=== PATIENT | male | born 1950 | race Two or more races ===

== ENCOUNTER 2019-04-11 13:08 | Inpatient (IN) | payer MEDICARE, OTHER ==
[~2019-04-11] VITALS: Ht 167.6 cm; Wt 84.8 kg
[~2019-04-11 13:08] MED LIST: ALBU18HF2 INH; DUTA0.5C PO; IPRA12.9 IN; TAMS0.4C34 PO
[2019-04-11 14:00] LABS: BASOPHILS % (AUTO) 0.2 % (0.0-2.0); EOSINOPHILS % (AUTO) 0.1 % (0.0-6.0); HEMATOCRIT 42 % (39-51); HEMOGLOBIN 14.2 g/dL (13.5-17.5); LYMPHOCYTES # (AUTO) 1.4 /CMM (0.8-4.8); LYMPHOCYTES % (AUTO) 13.1 % (20.0-44.0); MEAN CORPUSCULAR HGB CONC 34 g/dl (31.0-36.0); MEAN CORPUSCULAR VOLUME 96 fL (80-96); MONOCYTES # (AUTO) 1.1 /CMM (0.1-1.30); MONOCYTES % (AUTO) 10.7 % (2.0-12.0); NEUTROPHILS # (AUTO) 7.9 /CMM (1.8-8.9); NEUTROPHILS % (AUTO) 75.9 % (43.0-81.0); PLATELET COUNT (AUTO) 232 /CMM (150-450); WHITE BLOOD COUNT (AUTO) 10.4 K/uL (4.3-11.0)
[2019-04-11 14:07] LABS: CALCIUM, SERUM 9.1 mg/dL (8.5-10.1); CREATININE 0.9 mg/dL (0.6-1.3); POTASSIUM 4.3 mmol/L (3.5-5.1)
[2019-04-11 14:13] LABS: BILIRUBIN,TOTAL 0.5 mg/dL (0.2-1.0)
[2019-04-11 14:14] LABS: BILIRUBIN,DIRECT 0.2 mg/dL (0.0-0.2); TOTAL PROTEIN, SERUM 7.7 g/dL (6.4-8.2)
--- NOTE | 2019-04-11 14:16 | NUR ---
patient awake alert compali of abdominal pain denies nausea and vomiting ,xray done blood draws obtained continue to monitor
[2019-04-11 14:22] LABS: APPEARANCE,URINE Clear (CLEAR); BILIRUBIN,URINE Negative (NEGATIVE); BLOOD, URINE Small Ery/uL (NEGATIVE); COLOR,URINE Dark (YELLOW); KETONES,URINE Negative (NEGATIVE); LEUKOCYTE ESTERASE ,URINE Negative (NEGATIVE); NITRITE, URINE Negative (NEGATIVE); PROTEIN,URINE 30 mg/dl (NEGATIVE); UGLUCOSE Negative (NEGATIVE)
[2019-04-11] MEDS ORDERED: IV NS 0.9% 1,000 ML BAG IV ONE (14:30)
[2019-04-11 14:38] LABS: BACTERIA,URINE None seen /HPF (None Seen); MUCUS,URINE Few /LPF (None Seen); SQUAMOUS EPITHELIAL CELL,UR Rare /HPF (None Seen)
[2019-04-11] MEDS ORDERED: CT SWABBABLE VALVE TRANS SET 1 EA INFUS.SET MC ONE (14:44)
[2019-04-11] MEDS ORDERED: IOHEXOL-300 100 ML VIAL IV ONE (14:44)
[2019-04-11] MEDS ORDERED: IV NS 0.9% 250 ML IV ONE (14:44)
[2019-04-11] MEDS ORDERED: KETOROLAC TROMETHAMINE INJ 30 MG/ML VIAL IV ONE (16:00)
[2019-04-11] MEDS ORDERED: ISOS60TA4 PO (16:13)
[2019-04-11] MEDS ORDERED: DONE5TAB34 PO (16:13)
[2019-04-11] MEDS ORDERED: FLUT1DIS5 INH (16:13)
[2019-04-11] MEDS ORDERED: TAMS-12 PO (16:13)
[2019-04-11] MEDS ORDERED: MECL-102 PO (16:13)
[2019-04-11] MEDS ORDERED: ESCI10TA PO (16:13)
[2019-04-11] MEDS ORDERED: AMYL1CAP58 PO (16:13)
[2019-04-11] MEDS ORDERED: DUTA0.5C15 PO (16:13)
[2019-04-11] MEDS ORDERED: MONT10TA22 PO (16:13)
[2019-04-11] MEDS ORDERED: ICOS1CAP PO (16:13)
[2019-04-11] MEDS ORDERED: ROSU10TA29 PO (16:13)
[2019-04-11] MEDS ORDERED: KETOROLAC TROMETHAMINE INJ 30 MG/ML VIAL ONE (16:31)
--- NOTE | 2019-04-11 16:31 | NUR ---
CALLED FOR BED
--- NOTE | 2019-04-11 16:34 | NUR ---
[facility] PAGED
--- NOTE | 2019-04-11 16:50 | NUR ---
PATIENT AWAKE ALERT ARMENIA SPEAKING Rosalee @ BEDSIDE FOR INTREPRETER FAMILY MADE AWARE PLAN OF CARE ,ULTRASOUND @ BEDSIDE
--- NOTE | 2019-04-11 16:55 | NUR ---
room [facility]
[2019-04-11] MEDS ORDERED: PIPERACILLIN /TAZOBACTAM 3.375 G in IV D5W 50 ML IV ONE (17:00)
--- NOTE | 2019-04-11 17:21 | NUR ---
CALLED REPORT TO Shelia GOMEZ [phone]
[2019-04-11 17:30] VITALS: BP 134/78
[2019-04-11] MEDS ORDERED: ONDANSETRON HCL/PF 4 MG/2 ML VIAL IVP PRN (17:30)
[2019-04-11] MEDS ORDERED: Z GUARD REMEDY 2 OZ OINT TP PRN (17:30)
[2019-04-11] MEDS ORDERED: MAGNESIUM HYDROXIDE 30 ML UDC PO PRN (17:30)
[2019-04-11] MEDS ORDERED: MORPHINE SULFATE INJ 2 MG/ML DISP.SYRIN IV PRN (17:30)
[2019-04-11] MEDS ORDERED: MAG HYDROX/AL HYDROX/SIMETH 30 ML UDC PO PRN (17:30)
[2019-04-11] MEDS ORDERED: ACETAMINOPHEN 325 MG TABLET PO PRN (17:30)
[2019-04-11] MEDS ORDERED: ZOLPIDEM TARTRATE 5 MG TABLET PO PRN (17:30)
--- NOTE | 2019-04-11 17:30 | NUR ---
Received patient awake A/O x4 Namibian speaking only. Patient reported he has no pain at this time.Pain med was given in ER. Patient has IV assess LAC G20 , flushing well. Skin intact , gait is steady. No belongings with the patient. Patient adm. to MS , with diagnosis acute Cholecystitis . NPO status except meds . Patient oriented to the unit and room . Safety precautions implemented, call light within reach. Will endorse to next shift for TOMMY.
--- NOTE | 2019-04-11 17:38 | NUR ---
ELBERT MEJIA TO Jose Armando GOMEZ MADE AWARE STARTED INFUSION OF IV ANTI BIOTIC
[2019-04-11 18:00] VITALS: BP 129/73
[2019-04-11] MEDS ORDERED: Icosapent Ethyl (Vascepa) 1 GM PO SCH (18:00)
[2019-04-11] MEDS ORDERED: PIPERACILLIN /TAZOBACTAM 3.375 G in IV D5W 50 ML IV SCH (18:00)
[2019-04-11] MEDS: LIPASE/PROTEASE/AMYLASE 1 EACH CAPSULE.DR PO SCH (18:28)
[2019-04-11 19:10] VITALS: BP 116/69
--- NOTE | 2019-04-11 19:10 | NUR ---
MS YANNI INITIAL NOTES RECEIVED REPORT FROM AM NURSE WHILE DOING ROUNDS TO PT ROOM AND AT THE SAME TIME DR LUNA FITCH CAME AND WANTS TO SPEAK TO THE PATIENT. STANLEY/RN HELPED TO TRANSLATED BECAUSE PT ONLY SPEAK GUAMANIAN. DENIES ANY PAIN AT THIS TIME ONLY WHEN PRESSING HIS ABDOMEN . NO N/V WELL. GOT ORDERED TO CONTINUE MONITORING AND KEPT PT NPO AT THIS TIME. ENCOURAGE PT TO USED THE CALL LIGHT SYSTEM IF HE NEEDS SOME HELP OR NEEDS ASSISTANCE. KEPT HIM COMFORTABLE AND SAFETY AT ALL TIMES. PLACE CALL LIGHT AT REACH.
[2019-04-11] MEDS ORDERED: IV NS 0.9% 1,000 ML BAG IV PRN (19:30)
[2019-04-11 20:20] VITALS: BP 116/69
[2019-04-11] MEDS: IV NS 0.9% 1,000 ML IV PRN (21:06)
[2019-04-11] MEDS: TAMSULOSIN 0.4 MG CAP.SR.24H PO SCH (21:58)
--- NOTE | 2019-04-11 23:00 | NUR ---
MS LIAO NOTES CALLED CAKE PRESS OPERATOR MD REGARDING PT COMPLAINT. SPOKE TO DR DOMINGUEZ GOT ORDERED ALBUTEROL/ATROVENT UNIT DOSE Q 4HRS AND PRN. Addendum: 04/12/19 at 0006 by BUD SIMON LVN OFFERED TO THE PATIENT THE BREO ELLIPTA FOR HIS ASTHMA ,INHALATION TREATMENT BUT PT REFUSED . HE CALLED HIS DAUGHTER RUDDY HIS CELLPHONE AND DAUGHTER TOLD ME THAT PT DOESN'T LIKE THAT MEDICATION INSTEAD HE WANTS DIFF. WANT.
[2019-04-11] MEDS: IPRATROPIUM NEB FS 0.5 MG/2.5 ML AMPUL.NEB NEB PRN (23:25)
[2019-04-11] MEDS: ALBUTEROL FS 2.5 MG/3 ML VIAL.NEB NEB PRN (23:25)
--- NOTE | 2019-04-11 23:25 | NUR ---
MS YANNI NOTES RESPIRATORY CAME AND ADMINISTERED BREATHING TX ORDERED.
[2019-04-11] MEDS: PIPERACILLIN /TAZOBACTAM 3.375 G in IV D5W 100 ML IV SCH (23:45)
--- NOTE | 2019-04-12 00:01 | NUR ---
MS TILE DITCHER NOTES PT AWAKE AND ALERT AND NOTICED SMILE ON HIS FACE AFTER BREATHING TX. HE STATES "THANK YOU" AND NO SIGNS OF ANY ACUTE DISTRESS AT THIS TIME. IVF STILL INFUSING. WILL CONTINUE MONITORING. PLACE CALL LIGHT AT REACH.
--- NOTE | 2019-04-12 02:02 | NUR ---
ms dioni notes checked pt sleeping comfortably in bed without any distress or any discomfort noted. kept him warm and comfortable at all times. IVF NS infusing at 75ml/hr . will continue monitoring.
--- NOTE | 2019-04-12 07:17 | NUR ---
ms sales advisor closing notes pt awake and alert watching tv at this time . denies any pain or any discomfort. no n/v noted.as well, IVF NS at 75ml/hr still infusing. slept well after breathing tx . all needs met and all due meds given. kept him warm and comfortable at all times. still NPO except meds. Endorse to am nurse for continuity of care. place call light at reach.
--- NOTE | 2019-04-12 07:45 | NUR ---
MS RN OPENING NOTES RECEIVED PATIENT IN BED ALERT AND AWAKE ORIENTED X4, [place]ESE/CITIZEN OF [place] SPEAKING WITH CARBON ROD INSERTER UTILIZED. NO C/O OF SOB. DENIES ANY C/O PAIN NOR DISCOMFORT AT THIS TIME. RAC #20 INTACT AND PATENT INFUSING NS @ 75ML/HR. BED IN LOWEST POSITION, LOCKED. BRP, AMBULATORY WITH STEADY GAIT. CALL LIGHT WITHIN REACH.
[2019-04-12 08:00] VITALS: BP 118/74
[2019-04-12] MEDS: ESCITALOPRAM OXALATE (10 MG) 10 MG TABLET PO SCH (08:15)
[2019-04-12] MEDS: MONTELUKAST SODIUM (10MG) 10 MG TABLET PO SCH (08:15)
[2019-04-12] MEDS: ATORVASTATIN 10 MG TABLET PO SCH (08:16)
[2019-04-12] MEDS: MECLIZINE HCL 25 MG TABLET PO SCH ×2 (08:16→17:12)
[2019-04-12] MEDS: LIPASE/PROTEASE/AMYLASE 1 EACH CAPSULE.DR PO SCH ×3 (08:16→18:47)
[2019-04-12] MEDS: DONEPEZIL 5 MG TABLET PO SCH (08:16)
[2019-04-12] MEDS: DUTASTERIDE (0.5 MG) 0.5 MG CAPSULE PO SCH (08:16)
[2019-04-12] MEDS: ISOSORBIDE MONONITRATE (30MG) 30 MG TAB.SR.24H PO SCH (08:17)
[2019-04-12] MEDS: FLUTICASONE/VILANTEROL 1 EACH BLST.W.DEV IH SCH (08:22)
[2019-04-12] MEDS: PIPERACILLIN /TAZOBACTAM 3.375 G in IV D5W 100 ML IV SCH ×2 (08:22→16:37)
[2019-04-12] MEDS ORDERED: ISOSORBIDE MONONITRATE 60 MG TAB.SR.24H PO SCH (09:00)
[2019-04-12 11:09] LABS: BASOPHILS % (AUTO) 0.1 % (0.0-2.0); EOSINOPHILS % (AUTO) 0.2 % (0.0-6.0); HEMATOCRIT 38 % (39-51); LYMPHOCYTES # (AUTO) 1.2 /CMM (0.8-4.8); LYMPHOCYTES % (AUTO) 11.9 % (20.0-44.0); MEAN CORPUSCULAR HGB CONC 34 g/dl (31.0-36.0); MEAN CORPUSCULAR VOLUME 96 fL (80-96); MONOCYTES # (AUTO) 1.2 /CMM (0.1-1.30); MONOCYTES % (AUTO) 11.4 % (2.0-12.0); NEUTROPHILS # (AUTO) 7.8 /CMM (1.8-8.9); NEUTROPHILS % (AUTO) 76.4 % (43.0-81.0); PLATELET COUNT (AUTO) 248 /CMM (150-450); RED BLOOD CELL COUNT(AUTO) 3.98 MIL/uL (4.5-6.0); WHITE BLOOD COUNT (AUTO) 10.2 K/uL (4.3-11.0)
[2019-04-12 11:21] LABS: CALCIUM, SERUM 8.4 mg/dL (8.5-10.1); CREATININE 0.9 mg/dL (0.6-1.3); PHOSPHORUS 3.8 mg/dL (2.5-4.9)
--- NOTE | 2019-04-12 13:00 | NUR ---
MS RN NOTES PATIENT OFF UNIT FOR HIDA SCAN
--- NOTE | 2019-04-12 14:40 | NUR ---
MS RN NOTES PATIENT RETURNED TO UNIT FROM RADIOLOGY FROM HIDA SCAN.
[2019-04-12 16:00] VITALS: BP 96/56
--- NOTE | 2019-04-12 16:49 | NUR ---
MS RN NOTES PATIENT OFF UNIT FOR COMPLETION OF HIDA SCAN FOR GALLBLADDER.
--- NOTE | 2019-04-12 18:44 | NUR ---
MS RN CLOSING NOTES ALERT AND AWAKE ORIENTED X4. AT BEDSIDE. [place] R[place]/LEB[place]ESE SPEAKING WITH ALMOND CUTTING MACHINE TENDER UTILIZED. NO S/S OF RESPIRATORY DISTRESS. DENIES ANY C/O PAIN NOR DISCOMFORT AT THIS TIME. DENIES ANY C/O ABD PAIN AND N/V DURING THE SHIFT. RAC #20 INTACT AND PATENT INFUSING NS @ 75ML/HR. HIDA SCAN COMPLETED, GREGG WELL. IN NO APPARENT DISTRESS. BED IN LOWEST POSITION, LOCKED. CALL LIGHT WITHIN REACH.
--- NOTE | 2019-04-12 19:23 | NUR ---
MS RN NOTES RELAYED HIDA SCAN RESULT TO CHARLENE Becerra NP. PATIENT STATES HE WANTS TO EAT. AWAITING FO RESPONSE. ENDORSED TO ONCOMING SHIFT.
--- NOTE | 2019-04-12 19:30 | NUR ---
MS YANNI INITIAL NOTES RECEIVED REPORT FROM AM NURSE AND SEEN PT IN BED WITH IVF OF NS AT 75ML./HR INFUSING AT THIS TIME, DENIES ANY PAIN OR ANY DISCOMFORT. NO N/V NOTED. PT STILL NPO AND REQUESTED TO IF HE CAN HAVE SOMETHING TO EAT. SPOKE TO HIM THAT STILL WAITING FOR THE MD RESPONSE. KEPT HIM WARM AND COMFORTABLE AT ALL TIMES. PLACE CALL LIGHT AT REACH. WILL CONTINUE MONITORING.
[2019-04-12 20:00] VITALS: BP 112/63
[2019-04-12] MEDS: ALBUTEROL FS 2.5 MG/3 ML VIAL.NEB NEB PRN (21:21)
[2019-04-12] MEDS: IPRATROPIUM NEB FS 0.5 MG/2.5 ML AMPUL.NEB NEB PRN (21:21)
[2019-04-12] MEDS: TAMSULOSIN 0.4 MG CAP.SR.24H PO SCH (22:03)
--- NOTE | 2019-04-12 22:30 | NUR ---
MS YANNI NOTES ROUTINE MEDS GIVEN . STILL NPO EXCEPT MEDS. IVF STILL INFUSING . KEPT HIM WARM AND COMFORTABLE AT ALL TIMES. PLACE CALL LIGHT AT REACH.WILL CONTINUE MONITORING.
--- NOTE | 2019-04-13 | NUR ---
ms collision worker notes checked pt in his room sleeping comfortably in bed without any acute distress or any discomfort noted. still with IVF NS at 75ml/hr. kept him warm and comfortable at all times. place call light at reach.
[2019-04-13] MEDS: PIPERACILLIN /TAZOBACTAM 3.375 G in IV D5W 100 ML IV SCH ×4 (00:11→23:41)
[2019-04-13] MEDS ORDERED: PIPERACILLIN /TAZOBACTAM 3.375 G VIAL IV ONE (00:26)
[2019-04-13] MEDS: IV NS 0.9% 1,000 ML IV PRN (06:19)
[2019-04-13] MEDS: LIPASE/PROTEASE/AMYLASE 1 EACH CAPSULE.DR PO SCH ×3 (07:33→17:01)
--- NOTE | 2019-04-13 07:39 | NUR ---
ms director school for blind closing notes\ pt awake and alert denies any pain or any discomfort. no signs of any acute distress. all due meds given and all needs met. stable mayte the night. endorse to am nurse for continuity of care. place call light at reach.
--- NOTE | 2019-04-13 07:54 | NUR ---
MS RN OPENING NOTES RECEIVED PATIENT IN BED, ALERT AND AWAKE ORIENTED X4. PATIENT STATED IT WAS VERY COLD LAST NIGHT AND WAS COVERED UP WITH SEVERAL BLANKETS. NOTED TEMP OF 100.3. REMOVED BLANKETS WITH COOLING MEASURES PROVIDED. TYLENOL 650MG GIVEN PO GREGG WELL. PATIENT DENIES ANY C/O PAIN NOR DISCOMFORT AT THIS TIME. NO SOB. RIGHT AC # 20 INTACT AND PATENT INFUSING NS @ 75ML/HR GREGG WELL. BED IN LOWEST POSITION, LOCKED. CALL LIGHT WITHIN REACH. ABLE TO VERBALIZE NEEDS.
[2019-04-13 08:00] VITALS: BP 120/51
--- NOTE | 2019-04-13 08:30 | NUR ---
MS RN NOTES WITH TEMP OF 98.8
[2019-04-13] MEDS: FLUTICASONE/VILANTEROL 1 EACH BLST.W.DEV IH SCH (08:37)
[2019-04-13] MEDS: DUTASTERIDE (0.5 MG) 0.5 MG CAPSULE PO SCH (08:38)
[2019-04-13] MEDS: DONEPEZIL 5 MG TABLET PO SCH (08:38)
[2019-04-13] MEDS: ESCITALOPRAM OXALATE (10 MG) 10 MG TABLET PO SCH (08:38)
[2019-04-13] MEDS: ISOSORBIDE MONONITRATE (30MG) 30 MG TAB.SR.24H PO SCH (08:38)
[2019-04-13] MEDS: ATORVASTATIN 10 MG TABLET PO SCH (08:38)
[2019-04-13] MEDS: MECLIZINE HCL 25 MG TABLET PO SCH ×2 (08:39→17:00)
[2019-04-13] MEDS: MONTELUKAST SODIUM (10MG) 10 MG TABLET PO SCH (08:39)
--- NOTE | 2019-04-13 09:00 | NUR ---
MS RN NOTES PATIENT SEEN AND EXAMINED BY DR. WAGNER WITH NNO AT THIS TIME.
--- NOTE | 2019-04-13 10:47 | NUR ---
MS RN NOTES PATIENT SEEN BY CHARLENE Becerra AND DISCUSSED REGARDING SURGERY FOR REMOVAL OF GALLBLADDER AND EXPLAINED RISKS AND BENEFITS VS MEDICAL MANAGEMENT WITH RUG REPAIRER UTILIZED. PER PATIENT HE WILL DISCUSS WITH AND WILL INFORM NURSE IF PATIENT DECIDED TO DO THE SURGERY.
--- NOTE | 2019-04-13 12:49 | NUR ---
MS RN NOTES PATIENT AGREED TO HAVE SURGERY AND CONSENTED. DR. FITCH AND GEORGINA NELSON
[2019-04-13 14:12] LABS: BASOPHILS % (AUTO) 0.2 % (0.0-2.0); EOSINOPHILS % (AUTO) 0.3 % (0.0-6.0); HEMATOCRIT 36 % (39-51); HEMOGLOBIN 11.9 g/dL (13.5-17.5); LYMPHOCYTES # (AUTO) 1.4 /CMM (0.8-4.8); LYMPHOCYTES % (AUTO) 11.6 % (20.0-44.0); MEAN CORPUSCULAR HGB CONC 34 g/dl (31.0-36.0); MEAN CORPUSCULAR VOLUME 95 fL (80-96); MONOCYTES # (AUTO) 0.9 /CMM (0.1-1.30); MONOCYTES % (AUTO) 7.8 % (2.0-12.0); NEUTROPHILS # (AUTO) 9.3 /CMM (1.8-8.9); NEUTROPHILS % (AUTO) 80.1 % (43.0-81.0); PLATELET COUNT (AUTO) 244 /CMM (150-450); RED BLOOD CELL COUNT(AUTO) 3.73 MIL/uL (4.5-6.0); WHITE BLOOD COUNT (AUTO) 11.6 K/uL (4.3-11.0)
[2019-04-13 14:23] LABS: CALCIUM, SERUM 8.3 mg/dL (8.5-10.1); CREATININE 0.9 mg/dL (0.6-1.3); POTASSIUM 3.9 mmol/L (3.5-5.1)
[2019-04-13 16:00] VITALS: BP 104/60
[2019-04-13] MEDS: ALBUTEROL FS 2.5 MG/3 ML VIAL.NEB NEB PRN (16:07)
[2019-04-13] MEDS: IPRATROPIUM NEB FS 0.5 MG/2.5 ML AMPUL.NEB NEB PRN (16:07)
--- NOTE | 2019-04-13 17:20 | NUR ---
MS RN NOTES PATIENT LEFT UNIT IN STABLE CONDITION
--- NOTE | 2019-04-13 17:20 | NUR ---
MS RN NOTES PATIENT LEFT UNIT FOR OR FOR LAPAROSCOPIC CHOLECYSTECTOMY POSSIBLE OPEN POSSIBLE INTRAOPERATIVE CHOLIANGIOGRAM POSSIBLE LIVER BIOPSY. PATIENT'S AND BROTHER IN LAW IN WAITING AREA.
[2019-04-13] MEDS ORDERED: HYDROMORPHONE INJ 2 MG/ML DISP.SYRIN ONE (17:28)
[2019-04-13] MEDS ORDERED: ROCURONIUM BROMIDE 50 MG/5 ML ONE (17:28)
[2019-04-13] MEDS ORDERED: LIDOCAINE HCL/MPF 1% 30 ML VIAL IJ ONE (17:36)
[2019-04-13] MEDS ORDERED: BUPIVACAINE MPF 0.5% W/EPI INJ 30 ML VIAL ONE (17:36)
--- NOTE | 2019-04-13 20:10 | NUR ---
RN OPEN NOTES RECEIVED PATIENT FROM OR, AWAKE IN BED WITH FAMILY AT BEDSIDE. A/OX4. NO SIGNS OF DISTRESS OR DISCOMFORT. BREATHING EVEN AND UNLABORED. PATIENT S/P LAPROSCOPIC CHOLECYSTECTOMY. ON 2LPM O2 VIA NC. IV ACCESS IN RAC WITH NS INFUSING TO GRAVITY. PATIENT DENIES ANY PAIN AT THIS TIME. HAS DON DRAIN INTACT, DRAINING SANGUINEOUS FLUID WITH APPROX 25ML NOTED IN DRAIN. BED IN LOW LOCKED POSITION WITH SIDE RAILS X2. CALL LIGHT WITHIN REACH. WILL CONTINUE TO MONITOR.
[2019-04-13 20:15] VITALS: BP 98/57
[2019-04-13 20:45] VITALS: BP 111/54
[2019-04-13 21:15] VITALS: BP 114/63
[2019-04-13] MEDS: TAMSULOSIN 0.4 MG CAP.SR.24H PO SCH (22:00)
--- NOTE | 2019-04-14 07:27 | NUR ---
RN CLOSING NOTES PATIENT RESTING COMFORTABLY IN BED. A/OX4. NO SIGNS OF DISTRESS OR DISCOMFORT. BREATHING EVEN AND UNLABORED. ON 2LPM O2 VIA NC. IV ACCESS IN RAC WITH NS INFUSING, PATENT AND INTACT, NO SIGNS OF REDNESS OR INFILTRATION. PATIENT DENIES ANY PAIN AT THIS TIME. HAS DON DRAIN INTACT, DRAINING SANGUINEOUS FLUID WITH APPROX 75ML OUTPUT NOTED. ALL NEEDS MET. NO SIGNIFICANT CHANGES THROUGH THE NIGHT. BED IN LOW LOCKED POSITION WITH SIDE RAILS X2. CALL LIGHT WITHIN REACH. WILL ENDORSE TO AM SHIFT FOR TOMMY.
[2019-04-14 07:54] VITALS: BP 108/54
[2019-04-14 08:01] VITALS: BP 108/54
[2019-04-14] MEDS: DUTASTERIDE (0.5 MG) 0.5 MG CAPSULE PO SCH (08:13)
[2019-04-14] MEDS: MECLIZINE HCL 25 MG TABLET PO SCH ×2 (08:13→17:52)
[2019-04-14] MEDS: MONTELUKAST SODIUM (10MG) 10 MG TABLET PO SCH (08:13)
[2019-04-14] MEDS: ESCITALOPRAM OXALATE (10 MG) 10 MG TABLET PO SCH (08:13)
[2019-04-14] MEDS: ATORVASTATIN 10 MG TABLET PO SCH (08:13)
[2019-04-14] MEDS: LIPASE/PROTEASE/AMYLASE 1 EACH CAPSULE.DR PO SCH ×3 (08:13→17:52)
[2019-04-14] MEDS: PIPERACILLIN /TAZOBACTAM 3.375 G in IV D5W 100 ML IV SCH ×2 (08:13→15:50)
[2019-04-14] MEDS: DONEPEZIL 5 MG TABLET PO SCH (08:13)
[2019-04-14] MEDS: ISOSORBIDE MONONITRATE (30MG) 30 MG TAB.SR.24H PO SCH (08:14)
[2019-04-14] MEDS: FLUTICASONE/VILANTEROL 1 EACH BLST.W.DEV IH SCH (08:14)
[2019-04-14] MEDS: HYDROCODONE/APAP 5/325MG 1 EACH TABLET PO PRN ×2 (12:28→21:04)
[2019-04-14] MEDS: ALBUTEROL FS 2.5 MG/3 ML VIAL.NEB NEB PRN ×2 (13:17→21:17)
[2019-04-14] MEDS: IPRATROPIUM NEB FS 0.5 MG/2.5 ML AMPUL.NEB NEB PRN (13:17)
[2019-04-14 15:53] VITALS: BP 100/59
[2019-04-14 16:03] LABS: BASOPHILS % (AUTO) 0.1 % (0.0-2.0); EOSINOPHILS % (AUTO) 0.1 % (0.0-6.0); HEMATOCRIT 35 % (39-51); HEMOGLOBIN 11.9 g/dL (13.5-17.5); LYMPHOCYTES % (AUTO) 10.5 % (20.0-44.0); MEAN CORPUSCULAR HGB CONC 34 g/dl (31.0-36.0); MEAN CORPUSCULAR VOLUME 96 fL (80-96); MONOCYTES # (AUTO) 1.1 /CMM (0.1-1.30); NEUTROPHILS # (AUTO) 7.6 /CMM (1.8-8.9); NEUTROPHILS % (AUTO) 78.3 % (43.0-81.0); PLATELET COUNT (AUTO) 255 /CMM (150-450); RED BLOOD CELL COUNT(AUTO) 3.68 MIL/uL (4.5-6.0); WHITE BLOOD COUNT (AUTO) 9.7 K/uL (4.3-11.0)
[2019-04-14 16:24] LABS: ALBUMIN 2.3 g/dL (3.4-5.0); BILIRUBIN,TOTAL 0.3 mg/dL (0.2-1.0); CALCIUM, SERUM 8.2 mg/dL (8.5-10.1); CREATININE 0.9 mg/dL (0.6-1.3); MAGNESIUM 2.2 mg/dL (1.8-2.4); PHOSPHORUS 1.9 mg/dL (2.5-4.9); POTASSIUM 3.9 mmol/L (3.5-5.1); TOTAL PROTEIN, SERUM 6.4 g/dL (6.4-8.2)
--- NOTE | 2019-04-14 19:20 | NUR ---
RN OPEN NOTES RECEIVED PATIENT AWAKE IN BED. A/OX4. NO SIGNS OF DISTRESS OR DISCOMFORT. BREATHING EVEN AND UNLABORED. IV ACCESS IN RAC WITH NS INFUSING, PATENT AND INTACT, NO SIGNS OF REDNESS OR INFILTRATION. PATIENT DENIES ANY PAIN AT THIS TIME. HAS DON DRAIN INTACT, DRAINING SANGUINEOUS FLUID. BED IN LOW LOCKED POSITION WITH SIDE RAILS X2. CALL LIGHT WITHIN REACH. WILL CONTINUE TO MONITOR.
--- NOTE | 2019-04-14 19:33 | NUR ---
PATIENT RESTING IN BED. A/O X4 , BREATHING UNLABELED AND EVEN ON ROOM AIR. PATIENT ON FULL LIQUID DIET TOLERATED WELL. ALL NEEDS ATTENDED. SAFETY PRECAUTIONS IN PLACE , CALL LIGHT WITHIN REACH. WILL ENDORSE TO NEXT SHIFT FOR TOMMY
[2019-04-14 20:00] VITALS: BP 110/68
[2019-04-14] MEDS: TAMSULOSIN 0.4 MG CAP.SR.24H PO SCH (21:04)
[2019-04-15] MEDS: IV NS 0.9% 1,000 ML IV PRN (00:05)
[2019-04-15] MEDS: PIPERACILLIN /TAZOBACTAM 3.375 G in IV D5W 100 ML IV SCH ×4 (00:05→23:30)
[2019-04-15] MEDS: HYDROCODONE/APAP 5/325MG 1 EACH TABLET PO PRN ×3 (05:47→21:04)
--- NOTE | 2019-04-15 07:06 | NUR ---
RN CLOSING NOTES PATIENT RESTING COMFORTABLY IN BED. A/OX4. NO SIGNS OF DISTRESS OR DISCOMFORT. BREATHING EVEN AND UNLABORED. IV ACCESS IN RAC WITH NS INFUSING, PATENT AND INTACT, NO SIGNS OF REDNESS OR INFILTRATION. PATIENT DENIES ANY PAIN AT THIS TIME. HAS DON DRAIN INTACT, DRAINING SANGUINEOUS FLUID WITH APPROX 25ML OUTPUT NOTED. ALL NEEDS MET. NO SIGNIFICANT CHANGES THROUGH THE NIGHT. BED IN LOW LOCKED POSITION WITH SIDE RAILS X2. CALL LIGHT WITHIN REACH. ENDORSED TO AM SHIFT FOR TOMMY.
[2019-04-15 08:00] VITALS: BP 109/64
[2019-04-15] MEDS: MECLIZINE HCL 25 MG TABLET PO SCH ×2 (08:30→17:03)
[2019-04-15] MEDS: ESCITALOPRAM OXALATE (10 MG) 10 MG TABLET PO SCH (08:30)
[2019-04-15] MEDS: LIPASE/PROTEASE/AMYLASE 1 EACH CAPSULE.DR PO SCH ×3 (08:30→17:03)
[2019-04-15] MEDS: ATORVASTATIN 10 MG TABLET PO SCH (08:34)
[2019-04-15] MEDS: ISOSORBIDE MONONITRATE (30MG) 30 MG TAB.SR.24H PO SCH (08:34)
[2019-04-15] MEDS: DUTASTERIDE (0.5 MG) 0.5 MG CAPSULE PO SCH (08:34)
[2019-04-15] MEDS: MONTELUKAST SODIUM (10MG) 10 MG TABLET PO SCH (08:34)
[2019-04-15] MEDS: DONEPEZIL 5 MG TABLET PO SCH (08:35)
[2019-04-15] MEDS: FLUTICASONE/VILANTEROL 1 EACH BLST.W.DEV IH SCH (09:00)
[2019-04-15] MEDS: ALBUTEROL FS 2.5 MG/3 ML VIAL.NEB NEB PRN ×2 (09:47→21:38)
[2019-04-15] MEDS: IPRATROPIUM NEB FS 0.5 MG/2.5 ML AMPUL.NEB NEB PRN ×2 (09:47→21:38)
[2019-04-15 16:00] VITALS: BP 121/79
--- NOTE | 2019-04-15 18:58 | NUR ---
PATIENT RESTING COMFORTABLY IN BED. A/OX4. BREATHING EVEN AND UNLABORED. A NEW IV ACCESS IN RFA G20 WITH ZOSYN INFUSING ORDERED , PATENT AND INTACT. HAS DON DRAIN INTACT WITH OUTPUT 10CC. ALL NEEDS MET. NO SIGNIFICANT CHANGES THROUGH THE SHIFT. BED IN LOW LOCKED POSITION WITH SIDE RAILS X2. CALL LIGHT WITHIN REACH. ENDORSED TO NEXT SHIFT FOR TOMMY.
--- NOTE | 2019-04-15 19:05 | NUR ---
MS RN OPENING NOTES Received patient in bed, watching TV, alert, oriented x 4. Sinhala speaking. Breathing even and unlabored. Not in any distress. IV zosyn currently running at 25mL/hr. No complaints at this time. DON drain in place with minimal serous sanguinous output. Safety measures in place; call light within reach. Bed in low, locked position. Will continue to monitor accordingly
[2019-04-15 20:00] VITALS: BP 104/65
[2019-04-15] MEDS: TAMSULOSIN 0.4 MG CAP.SR.24H PO SCH (21:04)
[2019-04-16] MEDS: HYDROCODONE/APAP 5/325MG 1 EACH TABLET PO PRN ×2 (05:47→12:30)
[2019-04-16] MEDS: IV NS 0.9% 1,000 ML IV PRN (06:04)
[2019-04-16] MEDS: IPRATROPIUM NEB FS 0.5 MG/2.5 ML AMPUL.NEB NEB PRN (06:23)
[2019-04-16] MEDS: ALBUTEROL FS 2.5 MG/3 ML VIAL.NEB NEB PRN (06:23)
--- NOTE | 2019-04-16 06:52 | NUR ---
MS RN CLOSING NOTES Patient resting in bed, alert, oriented x 4, Lao speaking. Breathing even and unlabored. Not in any distress. Peripheral IV infusing at 75mL/hr. No complaints at this time. DON drain in place with 25mL output. No acute changes overnight. Safety measures in place; call light within reach. Bed in low, locked position. Will endorse TOMMY to oncoming RN
[2019-04-16 07:09] LABS: BASOPHILS % (AUTO) 0.2 % (0.0-2.0); EOSINOPHILS % (AUTO) 0.6 % (0.0-6.0); HEMATOCRIT 35 % (39-51); HEMOGLOBIN 11.9 g/dL (13.5-17.5); LYMPHOCYTES # (AUTO) 1.1 /CMM (0.8-4.8); LYMPHOCYTES % (AUTO) 9.6 % (20.0-44.0); MEAN CORPUSCULAR HGB CONC 34 g/dl (31.0-36.0); MEAN CORPUSCULAR VOLUME 94 fL (80-96); MONOCYTES # (AUTO) 1.1 /CMM (0.1-1.30); MONOCYTES % (AUTO) 9.9 % (2.0-12.0); NEUTROPHILS # (AUTO) 9.2 /CMM (1.8-8.9); NEUTROPHILS % (AUTO) 79.7 % (43.0-81.0); PLATELET COUNT (AUTO) 267 /CMM (150-450); WHITE BLOOD COUNT (AUTO) 11.5 K/uL (4.3-11.0)
[2019-04-16 08:00] VITALS: BP 102/60
[2019-04-16] MEDS: ESCITALOPRAM OXALATE (10 MG) 10 MG TABLET PO SCH (08:13)
[2019-04-16] MEDS: PIPERACILLIN /TAZOBACTAM 3.375 G in IV D5W 100 ML IV SCH (08:13)
[2019-04-16 08:17] VITALS: BP 102/60
[2019-04-16] MEDS: ISOSORBIDE MONONITRATE (30MG) 30 MG TAB.SR.24H PO SCH (08:17)
[2019-04-16] MEDS: MECLIZINE HCL 25 MG TABLET PO SCH (08:18)
[2019-04-16] MEDS: MONTELUKAST SODIUM (10MG) 10 MG TABLET PO SCH (08:18)
[2019-04-16] MEDS: LIPASE/PROTEASE/AMYLASE 1 EACH CAPSULE.DR PO SCH ×2 (08:18→12:30)
[2019-04-16] MEDS: DUTASTERIDE (0.5 MG) 0.5 MG CAPSULE PO SCH (08:18)
[2019-04-16] MEDS: DONEPEZIL 5 MG TABLET PO SCH (08:18)
[2019-04-16] MEDS: FLUTICASONE/VILANTEROL 1 EACH BLST.W.DEV IH SCH (08:19)
[2019-04-16] MEDS: ATORVASTATIN 10 MG TABLET PO SCH (08:19)
[2019-04-16 09:42] LABS: CREATININE 0.8 mg/dL (0.6-1.3); POTASSIUM 3.4 mmol/L (3.5-5.1)
--- NOTE | 2019-04-16 10:02 | NUR ---
DON drain removed at bedside by DR. Nixon. Patient tolerated well, no bleeding noted, no s/s infection noted
--- NOTE | 2019-04-16 13:30 | NUR ---
Patient cleared for D/C home by . Patient A/Ox4, breathing unlabored and even on room air, VS are stable and within baseline. Dressing clean and intact. All needs attended; patient medicated before discharge. Patient tolerated regular soft diet well; no N/V/D noted. IV line removed, ID wrist band removed. D/C instructions, prescription, education provided to patient and his : both verbalized understanding. Patient will f/u with PCP in one week. All d/c papers signed including valuable form and all belongings with the patient. Patient safely transferred to [facility] via wheelchair accompanied by and MARIA ESTHER Dickinson
== END 2019-04-16 13:30 | disposition home or self-care (01) | DRG 418 ==
LOC: ER 13:14 → MED 17:00
PROVIDERS: ADMIT Family Medicine; ATTEND Family Medicine
PROC: 0FT44ZZ Resection of Gallbladder, Percutaneous Endoscopic Approach (ICD-10-PCS; principal; 2019-04-13)
PROC: 0FB04ZX Excision of Liver, Percutaneous Endoscopic Approach, Diagnostic (ICD-10-PCS; 2019-04-13)
DX: K80.00 Calculus of gallbladder with acute cholecystitis without obstruction (principal); E44.1 Mild protein-calorie malnutrition; I10 Essential (primary) hypertension; I25.10 Atherosclerotic heart disease of native coronary artery without angina pectoris; J44.9 Chronic obstructive pulmonary disease, unspecified; N40.0 Benign prostatic hyperplasia without lower urinary tract symptoms; K59.00 Constipation, unspecified; R73.9 Hyperglycemia, unspecified; Z68.30 Body mass index [BMI] 30.0-30.9, adult; E88.09 Other disorders of plasma-protein metabolism, not elsewhere classified; E66.9 Obesity, unspecified; F17.210 Nicotine dependence, cigarettes, uncomplicated; K43.9 Ventral hernia without obstruction or gangrene
CPT/HCPCS: 36415; 71045-TC; 76705-TC; 78226; 80048-TC; 80053-TC; 80061-TC; 80076-TC; 81000-TC; 83690-TC; 83735-TC; 84100-TC; 85025-TC; 85610-TC; 86850-TC; 87081-TC; 88304-TC; 88307-TC; 88313-TC; 94799-TC; A6253; A9537; G0378; J0330; J0690; J1100; J1170; J1885; J2405; J2543; J2704; J2710; J3490; J7030; J7050; J7060; J8597; Q9967